=== PATIENT | male | born 1995 | race Caucasian/White ===

== ENCOUNTER 2020-04-14 12:00 | Emergency (ER) | payer MEDICAID ==
[~2020-04-14] VITALS: Ht 180.3 cm; Wt 70.5 kg
[2020-04-14] MEDS ORDERED: diazepam 5mg tablet PO ONE (13:25)
[2020-04-14] MEDS ORDERED: ketorolac tromethamine 15mg/ml inj. IM ONE (13:25)
[2020-04-14] MEDS ORDERED: METH-360 PO (13:31)
[2020-04-14] MEDS ORDERED: NAPR-56 PO (13:31)
--- NOTE | 2020-04-14 15:07 | NUR ---
Pt refusing MRI. BRETT Alexandre aware.
[2020-04-14 15:10] VITALS: BP 106/66
== END 2020-04-14 15:11 | disposition home or self-care (01) ==
LOC: ER 12:01
DX: M54.9 Dorsalgia, unspecified (principal)
CPT/HCPCS: 72100; 96372; 99283; J1885